=== PATIENT | male | born 1965 | race Caucasian/White ===

== ENCOUNTER → 2018-08-22 | Outpatient (CLI) | payer BC, OTHER ==
--- NOTE | 2018-08-22 15:32 | KCIC ---
EXAM: MRI right upper extremity/humerus DATE: 08/22/2018 1:15 PM CLINICAL HISTORY: Right arm pain, history of biceps rupture, pain with elbow extension COMPARISON: None available. TECHNIQUE: Multiplanar, multisequence MR imaging of the right humerus was performed without IV contrast. FINDINGS: There is a tear of the proximal biceps tendon with distal migration/retraction of the biceps tendon tip to the proximal-mid humeral shaft. Resultant Chau type deformity is seen. Curvilinear T1/T2 hypointense signal, likely tendon anchor is seen at the tip of this retracted biceps muscle. Otherwise the muscles of the arm are normal in bulk and signal without fatty atrophy. Moderate elbow joint effusion. IMPRESSION: 1. Re-tear of the proximal biceps tendon is seen with tendon anchor and tendon moiety retracted to the level of the proximal-mid humeral shaft. 2. Associated edema is seen within the biceps muscle belly. 3. Moderate elbow joint effusion. Electronically signed by: Kareem Burkett MD (08/22/2018 3:29 PM) [id number]
== END | disposition home or self-care (01) ==
LOC: KCIC MRI 13:00
PROVIDERS: ATTEND Physician Assistant Medical
DX: S46.111A Strain of muscle, fascia and tendon of long head of biceps, right arm, initial encounter (principal); M25.421 Effusion, right elbow; R60.0 Localized edema; X58.XXXA Exposure to other specified factors, initial encounter; Y93.89 Activity, other specified; Y92.89 Other specified places as the place of occurrence of the external cause; Y99.8 Other external cause status
CPT/HCPCS: 73218

== ENCOUNTER → 2021-05-05 | Outpatient (CLI) | payer BC, OTHER ==
--- NOTE | 2021-05-05 15:22 | KCIC ---
CT SCREENING FOR CORONARY ARTERY History: Reason: Hyperlipidemia, cardiovascular screening. / Spl. Instructions: / History: Technique: With retrospective electrocardiogram gating axial reconstructed noncontrast images of the chest at the level of the coronary arteries was performed. Images were post processed on workstation and calcium score calculated using the modified Agatston Janowitz protocol. Exposure: One or more of the following individualized dose reduction techniques were utilized for thi s examination: 1. Automated exposure control 2. Adjustment of the mA and/or kV according to patient size 3. Use of iterative reconstruction technique. Comparison: None Findings: Total coronary calcium score is 0. There is no plaque burden and low cardiovascular disease risk. This is based on the calcium score of 0 of the left main coronary artery, 0 of the left anteri or descending artery, score of 0 of the left circumflex artery and score of 0 of the right coronary a rtery. Noncoronary findings: 2 mm right upper lobe pulmonary nodule (series 4 image 2). 3 mm right middle lobe fissure-based nodul es (image 8). Additional small cluster of nodules within the right lower lobe largest measures 3 mm ( image 28, 29 3031. Right lower lobe nodular opacity measures 6 mm (image 29). Additional small right lower lobe pulmonary nodules. IMPRESSION: 1. Low cardiovascular disease risk. Calcium score 0. 2. Multiple pulmonary nodules. Recommend 6-12 month follow-up chest CT without contrast. Electronically signed by: Ashish Perez DO (05/05/2021 3:19 PM) [id number]
== END ==
LOC: KCIC CT 13:42
PROVIDERS: ATTEND Physician Assistant Medical
DX: I25.10 Atherosclerotic heart disease of native coronary artery without angina pectoris (principal); E78.5 Hyperlipidemia, unspecified; R91.8 Other nonspecific abnormal finding of lung field
CPT/HCPCS: 75571